=== PATIENT | female | born 1960 | race Caucasian/White ===

== ENCOUNTER 2019-07-31 12:32 | Outpatient (CLI) | payer BC | END 2019-07-31 23:59 | disposition home or self-care (01) | LOC: VAS 12:32 | PROVIDERS: ATTEND Family Medicine | DX: M71.21 Synovial cyst of popliteal space [Baker], right knee (principal); M79.605 Pain in left leg; R60.0 Localized edema; Z87.891 Personal history of nicotine dependence | CPT/HCPCS: 93970 ==